=== PATIENT | male | born 1970 | race Caucasian/White ===

== ENCOUNTER → 2016-05-07 | Outpatient (CLI) | payer MEDICARE, BC ==
[~2016-05-07] MED LIST: ACETAMINOPHEN325 MG PO; AMOXICILLIN875 MG PO; CELLCEPT500 MG PO; HYDROCODON-ACE1 EAC7 PO; LABETALOL HCL200 MG PO; LANSOPRAZOLE30 M3 PO; LISINOPRIL10 MG PO; LOC PO; MULTI VITAMIN1 EACH PO; NORVASC; PHOSLO667 MG; PRAVASTATIN SOD40 MG PO; PROGRAF1 MG PO; RENAGEL403 MG; ROBITUSSIN DM T10 ML PO; TOPROL XL
[2016-05-07 07:17] LABS: HEMOGLOBIN 14.3 gm/dL (13.0-16.0); MEAN CORPUSCULAR HEMOGLOBIN 27.6 PG (28-34); MEAN CORPUSCULAR HGB CONC 32.5 g/dL (30-36); MEAN PLATELET VOLUME 9.2 FL (6.5-11.5); RED BLOOD COUNT 5.18 X10e (3.90-5.60); RED CELL DISTRIBUTION WIDTH 13.4 % (11.0-15.5); WHITE BLOOD COUNT 8.7 X10e3 (4.0-10.5)
== END | disposition home or self-care (01) ==
LOC: CLAB 06:33
PROVIDERS: Internal Medicine Nephrology
DX: Z48.22 Encounter for aftercare following kidney transplant (principal); Z94.0 Kidney transplant status; Z79.899 Other long term (current) drug therapy
CPT/HCPCS: 36415; 80197; 83735; 85027

== ENCOUNTER → 2016-09-24 | Outpatient (CLI) | payer MEDICARE, BC ==
[2016-09-24 07:13] LABS: HEMATOCRIT 42.7 % (38.0-50.0); MEAN CELL VOLUME 84.5 FL (83-96); MEAN CORPUSCULAR HEMOGLOBIN 27.7 PG (28-34); MEAN CORPUSCULAR HGB CONC 32.8 g/dL (30-36); MEAN PLATELET VOLUME 9.4 FL (6.5-11.5); RED BLOOD COUNT 5.05 X10e (3.90-5.60); RED CELL DISTRIBUTION WIDTH 13.4 % (11.0-15.5); WHITE BLOOD COUNT 9.8 X10e3 (4.0-10.5)
[2016-09-24 07:48] LABS: ALBUMIN SERUM 3.5 g/dL (3.5-5.0); BILIRUBIN,TOTAL 0.4 mg/dL (0.2-2.0); BUN/CREATININE RATIO 18.88; CREATININE SERUM 0.9 mg/dL (0.6-1.4); GLOM FILT RATE Estimated 103.5 mL/min (>60); MAGNESIUM 1.5 mg/dL (1.6-3.0); POTASSIUM 4.3 mmol/L (3.5-5.1); PROTEIN TOTAL SERUM 7.5 g/dL (6.0-8.3)
== END | disposition home or self-care (01) ==
LOC: CTPL 06:50
PROVIDERS: Internal Medicine Nephrology
DX: Z48.22 Encounter for aftercare following kidney transplant (principal)
CPT/HCPCS: 36415; 80053; 80197; 83735; 85027